=== PATIENT | female | born 1975 | race Two or more races ===

== ENCOUNTER → 2022-06-24 | Outpatient (CLI) | payer OTHER | END | disposition home or self-care (01) | LOC: WOU 09:00 | PROVIDERS: ATTEND Specialist | DX: T86.821 Skin graft (allograft) (autograft) failure (principal); L40.52 Psoriatic arthritis mutilans; K51.90 Ulcerative colitis, unspecified, without complications; E03.8 Other specified hypothyroidism | CPT/HCPCS: G0463 ==